=== PATIENT | male | born 1995 | race Caucasian/White ===

== ENCOUNTER 2016-08-25 21:10 | Emergency (ER) | payer OTHER ==
[~2016-08-25] VITALS: Ht 177.8 cm; Wt 100.0 kg
[2016-08-25 21:29] VITALS: BP 122/73; TEMP 98.6; O2SAT 100
[2016-08-25 21:40] VITALS: BP 135/91; PULSE 122; RESP 24; O2SAT 100
[2016-08-25] MEDS ORDERED: LIDOCAINE 1%/EPINEPHrine 1:100,000 SOLN 20 ML VIAL INFIL ONE (22:00)
[2016-08-25] MEDS ORDERED: SODIUM CHLOR 0.9% 1000 ML INJ 1,000 ML IV ONE (22:00)
[2016-08-25] MEDS ORDERED: TETANUS/DIPHTHERIA TOXOID ADULT 0.5 ML VIAL IM ONE (22:00)
[2016-08-25] MEDS ORDERED: ceFAZolin 2 GM PREMIX 50 ML IV ONE (22:00)
--- NOTE | 2016-08-25 22:32 | RADRPT ---
EXAM DATE/TIME: 08/25/2016 22:02 [place] COMPARISON: No previous studies available for comparison. INDICATIONS : Right hand laceration tonight. MEDICAL HISTORY : None. SURGICAL HISTORY : None. ENCOUNTER: Initial ACUITY: 1 day PAIN SCORE: 4/10 LOCATION: Right medial hand. FINDINGS: No fracture seen. There is soft tissue defect dorsally of the proximal hand, basically overlying the base of the fifth metacarpal. No radiopaque foreign body seen. There appears to be a small ossicle vo lar to the base of the fifth metacarpal, appears chronic, not convincing for an acute fracture fragme nt. CONCLUSION: Soft tissue injury without perceptible fractures. Guillermo Vargas MD on August 25, 2016 at 22:27 Board Certified Radiologist. This report was verified electronically.
[2016-08-25] MEDS ORDERED: CEPH-460 PO (23:21)
[2016-08-25] MEDS ORDERED: IBUP-232 PO (23:21)
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
[2016-08-26 05:04] VITALS: BP 129/84; PULSE 107; RESP 20; O2SAT 98
== END 2016-08-26 05:45 | disposition home or self-care (01) ==
LOC: NEPA 21:10
DX: S61.411A Laceration without foreign body of right hand, initial encounter (principal); S66.821A Laceration of other specified muscles, fascia and tendons at wrist and hand level, right hand, initial encounter; W25.XXXA Contact with sharp glass, initial encounter; Y93.89 Activity, other specified; Z23 Encounter for immunization
CPT/HCPCS: 12042; 73130; 90471; 90714; 96361; 96374; 99283; J0690; J7030